=== PATIENT | female | born 1940 | race Caucasian/White ===

== ENCOUNTER 2019-02-08 12:59 | Inpatient (IN) ==
--- NOTE | 2019-02-08 13:08 | CT Scan Report ---
CT head/brain wo con CLINICAL HISTORY: STROKE ALERT STROKE LIKE SYMPTOMS COMPARISON STUDY: No previous studies for comparison. TECHNIQUE: Axial CT of the brain is performed from the vertex to the skull base. IV contrast was not administered for this examination. A dose lowering technique was utilized adhering to the principles of ALARA. CT DOSE: 537.48 mGy.cm FINDINGS: No intra or extra-axial mass lesions are visualized. There is no CT evidence of acute cortical infarc tion. There is no evidence of midline shift. There is no acute hemorrhage. No calvarial fractures ar e visualized. There is minimal ventricular prominence, finding which is felt to be secondary to volume loss. There is no evidence of pathologic ventricular dilatation. There is no evidence of acute sinusitis IMPRESSION: No acute intracranial findings Electronically signed by: Trae Guthrie M.D. 02/08/2019 1:07 PM
[2019-02-08 13:30] LABS: Basophils # (auto) 0.03 K/uL (0-0.2); Basophils % (auto) 0.4 %; Eosinophils # (auto) 0.22 K/uL (0-0.5); Hematocrit (blood only) 39.6 % (37-47); Hemoglobin 14.5 g/dL (12.0-16.0); Immature Granulocytes # (auto) 0.02 K/uL (0.00-0.02); Immature Granulocytes % (auto) 0.3 %; Lymphocytes # (auto) 2.77 K/uL (1.2-3.4); Lymphocytes % (auto) 38.3 %; Mean Corpuscular Hgb Conc 36.6 g/dL (32-36); Mean Corpuscular Volume 85.9 fL (80-100); Mean Platelet Volume 9.8 fL (7.4-10.4); Monocytes # (auto) 0.63 K/uL (0.11-0.59); Monocytes % (auto) 8.7 %; Neutrophils # (auto) 3.57 K/uL (1.4-6.5); Neutrophils % (auto) 49.3 %; Platelet Count 230 K/uL (130-400); RDW Coefficient of Variation 12.6 % (11.5-14.5); RDW Standard Deviation 39.9 fL (36.4-46.3); Red Blood Count 4.61 M/uL (4.2-5.4); White Blood Count 7.24 K/uL (4.8-10.8)
[2019-02-08 13:38] LABS: Partial Thromboplastin Ratio 0.9; Partial Thromboplastin Time 25.1 Seconds (21.0-31.0); Prothrombin Time 10.3 Seconds (9.0-12.0)
[2019-02-08 13:42] LABS: Alanine Aminotransferase 23 U/L (12-78); Albumin Level 4.4 gm/dl (3.4-5.0); BUN Creatinine Ratio 20.2 (10-20); Blood Urea Nitrogen 36 mg/dl (7-18); Calcium 10.3 mg/dl (8.5-10.1); Carbon Dioxide 28 mmol/L (21-32); Chloride 98 mmol/L (98-107); Est GFR (African American) 31.1; Est GFR (Non-African American) 26.8; Glucose 89 mg/dl (70-99); Magnesium 2.1 mg/dl (1.8-2.4); Potassium 4.7 mmol/L (3.5-5.1); Sodium 134 mmol/L (136-145)
[2019-02-08 13:53] LABS: Alkaline Phosphatase 64 U/L (45-117); Aspartate Aminotransferase 17 U/L (15-37); Bilirubin,Total 0.6 mg/dl (0.2-1); Globulin 4.3 gm/dl (2.5-4.0); Total Protein 8.7 gm/dl (6.4-8.2); Troponin I < 0.015 ng/ml (0-0.045)
[2019-02-08] MEDS ORDERED: ASPIRIN CHEW 324 MG PO STA (14:02)
--- NOTE | 2019-02-08 14:06 | XRay Report ---
XR chest 1V portable CLINICAL HISTORY: 79 years-old Female presenting with aphasia. TECHNIQUE: Portable upright AP view of the chest was obtained. COMPARISON: None. FINDINGS: Atherosclerosis of the aortic arch. Cardiac silhouette normal in size. Postsurgical changes in the pe riphery of the right upper lung. Mildly coarsened lung markings may indicate interstitial thickening. Right paramediastinal basilar opacity. No other focal opacity. No large effusion or pneumothorax. De generative changes of the thoracic spine. Cortical compression plate and screw fixation of the right clavicle. Upper abdomen normal. IMPRESSION: 1. Right paramediastinal opacity may relate to overlapping vascular shadows, underlying fat pad or a telectasis. No other evidence to suggest acute cardiopulmonary disease. Electronically signed by: Mukul Benoit M.D. 02/08/2019 2:05 PM
[2019-02-08] MEDS ORDERED: NICARDIPINE IV SCH (14:15)
[2019-02-08] MEDS ORDERED: DEXTROSE 5% IV SCH (14:15)
[2019-02-08] MEDS ORDERED: ONDANSETRON INJ 2 MG/ML 2 ML VIAL ONE (14:18)
[2019-02-08] MEDS ORDERED: ONDANSETRON INJ 2 MG/ML 2 ML VIAL IV STA (14:23)
--- NOTE | 2019-02-08 14:32 | Emergency Department Note ---
Entered by Alicia Arevalo acting as a scribe for Emory Blanc M.D. History of Present Illness General Chief complaint: Stroke Alert Source: patient Mode of arrival: ambulatory Limitations: no limitations History of Present Illness Onset (ago): hour(s) (1215) Location: head (stroke alert) Pain Consistency: + other (episode) Quality: + other (stroke alert) Associated symptoms: + other (The patient complains of garbled speech and thigh pain. ) The patient is an 79 year old female who presents to the ED via EMS with compl aints of an episode of a stroke alert that onset at 1215. The patient presents with her . Per nursing staff, the patient was driving with her toward the [employer] [place] when she developed garbled speech. The patient complains of thigh pain. Home Medications Home Medications Medication Instructions Recorded Confirmed Type calcium carbonate [Calcium 600] 1,200 mg PO DAILY 02/08/19 02/08/19 History gabapentin 300 mg PO QPM 02/08/19 02/08/19 History gabapentin 600 mg PO QAM 02/08/19 02/08/19 History levothyroxine [Synthroid] 112 mcg PO QAM 02/08/19 02/08/19 History magnesium 250 mg PO DAILY 02/08/19 02/08/19 History propranolol 80 mg PO DAILY 02/08/19 02/08/19 History Allergies Allergy/AdvReac Type Severity Reaction Status Date / Time codeine Allergy Unknown Verified 02/08/19 15:33 ezetimibe [From Vytorin] Allergy Unknown Verified 02/08/19 15:33 simvastatin [From Vytorin] Allergy Unknown Verified 02/08/19 15:33 aspirin AdvReac Unknown stomach Verified 02/08/19 15:33 ulcer NSAIDS (Non-Steroidal AdvReac Ulcers Unverified 02/08/19 14:10 Anti-Inflamma Penicillins AdvReac Unknown Unverified 02/08/19 14:10 Past Med/Surg History Medical History CKD (chronic kidney disease), stage IV (Chronic) Hypothyroidism (Chronic) History of hysterectomy (Chronic) HLD (hyperlipidemia) (Chronic) HTN (hypertension) (Chronic) No pertinent family history Surgical History History of cataract surgery (Chronic) History of orthopedic surgery (Chronic) clavicle fracture and surgical repair History of partial nephrectomy (Chronic) History of thyroidectomy (Chronic) Hx of tonsillectomy (Chronic) History of cholecystectomy (Chronic) History of appendectomy (Chronic) Family History Other No pertinent family history Social History Preferred Language: Wolof Communication Ability: Effective Visual Impairment: No Limitations Hearing Ability: Normal Feels Safe at Home: Yes Smoking Status: Never smoker Hx Alcohol Use: No Hx Substance Use: No Review of Systems See HPI for pertinent positives & negatives. and A total of 10 systems reviewed and were otherwise negative Physical Exam Vital Signs Vital Signs - 24 hr 02/08/19 13:09 02/08/19 13:19 02/08/19 13:24 Temperature 36.6 C Temperature Source Oral Sepsis Recent Fever Within 48 Hours No Sepsis New/Unexplained Change in Mental Status No Sepsis Action Taken by Nursing No Action Required Pulse Rate 62 Pulse Rate [Apical] 60 Pulse Rate from SpO2 Sensor Respiratory Rate 20 16 Blood Pressure 245/125 H Blood Pressure [Left Arm] 229/134 H Blood Pressure Mean 165 Blood Pressure Mean [Left Arm] 165 Pulse Oximetry 97 96 98 Oxygen Delivery Method Room Air Room Air Room Air 02/08/19 13:31 02/08/19 13:47 02/08/19 14:16 Temperature Temperature Source Sepsis Recent Fever Within 48 Hours Sepsis New/Unexplained Change in Mental Status Sepsis Action Taken by Nursing Pulse Rate 64 Pulse Rate [Apical] 55 L 60 Pulse Rate from SpO2 Sensor 63 Respiratory Rate 16 16 26 H Blood Pressure 217/122 H Blood Pressure [Left Arm] 215/117 H 222/134 H Blood Pressure Mean 153 Blood Pressure Mean [Left Arm] 149 163 Pulse Oximetry 96 94 96 Oxygen Delivery Method Room Air Room Air Room Air 02/08/19 14:31 02/08/19 14:34 02/08/19 14:46 Temperature Temperature Source Sepsis Recent Fever Within 48 Hours Sepsis New/Unexplained Change in Mental Status Sepsis Action Taken by Nursing Pulse Rate 73 69 77 Pulse Rate [Apical] Pulse Rate from SpO2 Sensor 74 71 77 Respiratory Rate 16 24 20 Blood Pressure 184/106 H 191/121 H 192/125 H Blood Pressure [Left Arm] Blood Pressure Mean 132 144 147 Blood Pressure Mean [Left Arm] Pulse Oximetry 96 95 100 Oxygen Delivery Method Room Air Room Air Room Air 02/08/19 15:01 02/08/19 15:15 02/08/19 15:30 Temperature Temperature Source Sepsis Recent Fever Within 48 Hours Sepsis New/Unexplained Change in Mental Status Sepsis Action Taken by Nursing Pulse Rate 75 68 65 Pulse Rate [Apical] Pulse Rate from SpO2 Sensor 74 69 66 Respiratory Rate 23 21 22 Blood Pressure 226/142 H 188/114 H 203/114 H Blood Pressure [Left Arm] Blood Pressure Mean 170 138 143 Blood Pressure Mean [Left Arm] Pulse Oximetry 93 96 94 Oxygen Delivery Method Room Air Room Air GENERAL: Awake, alert, well-appearing, in no distress HENT: Normocephalic, atraumatic. Oropharynx unremarkable. EYES: Normal conjunctiva. Sclera non-icteric. NECK: Supple. No nuchal rigidity. RESPIRATORY: Clear to auscultation. No wheezes. Normal respiratory effort. CARDIAC: Normal rate. Normal rhythm. Extremities warm and well perfused. GI: Soft, non-distended. No tenderness to palpation. No rebound or guarding. RECTAL: Deferred. MUSCULOSKELETAL: Atraumatic. Chest examination reveals no tenderness. LOWER EXTREMITIES: Calves are equal size bilaterally and non-tender. No edema NEURO: Normal sensorium. No sensory or motor deficits noted. No facial droop. No slurred speech, no aphasia, but slightly slower to answer at times. SKIN: Warm and dry. No rash or jaundice noted. Course 1259: Past medical records reviewed. The patient was evaluated in room B01. A complete history and physical examination was performed. 1338: I reviewed the patient's case with [facility] [place]. She states to give aspirin, no TPA, and monitor blood pressure. 1401: I reviewed the patient's case with Shelbi Tucker PA-C Hospitalist [facility]. She will evaluate the patient for further management. Consultations Consultation #1: [id number]: I reviewed the patient's case with [facility] [place]. She states to give aspirin, no TPA, and monitor blood pressure. Time: 13:38 Administered Medications Nicardipine HCl 25 mg/ (Dextrose) 250 mls @ 50 mls/hr IV .Q5H [facility]; Protocol Stop: 03/10/19 14:14 Last Titration: 02/08/19 14:38 Dose: 0 mg/hr, 0 mls/hr Documented by: [id number] Admin: 02/08/19 14:17 Dose: 2.5 mg/hr, 25 mls/hr Documented by: [id number] Cosigned by: [id number] Discontinued Medications Aspirin (Aspirin) 324 mg PO NOW STA Stop: 02/08/19 14:03 Last Admin: 02/08/19 14:18 Dose: 324 mg Documented by: [id number] Ondansetron HCl (Zofran) Confirm Administered Dose 4 mg .ROUTE .STK-MED ONE Stop: 02/08/19 14:19 Last Admin: 02/08/19 14:22 Dose: 4 mg Documented by: [id number] Ondansetron HCl (Zofran) 4 mg IV NOW STA Stop: 02/08/19 14:24 Last Admin: 02/08/19 14:24 Dose: Not Given Documented by: [id number] Medical Decision Making Differential Diagnosis Differential diagnoses: Metabolic, infection, hypoglycemia, electrolyte abnormalities, cardiac sources, intracerebral event, toxicologic, neurologic, as well as others were entertained. Medical Records Attestation: I reviewed the patient's medical records. Home Medications Current Medication List: was personally reviewed by me Laboratory Data Attestation: I reviewed the patient's lab results. Result diagrams: 02/08/19 13:08 02/08/19 13:08 Lab Results 02/08/19 02/08/19 02/08/19 Range/Units 13:08 13:08 13:08 WBC 7.24 (4.8-10.8) K/uL RBC 4.61 (4.2-5.4) M/uL Hgb 14.5 (12.0-16.0) g/dL Hct 39.6 (37-47) % MCV 85.9 (80-100) fL MCH 31.5 (25-34) pg MCHC 36.6 H (32-36) g/dL RDW Std Deviation 39.9 (36.4-46.3) fL RDW Coeff of [place] 12.6 (11.5-14.5) % Plt Count 230 (130-400) K/uL MPV 9.8 (7.4-10.4) fL Immature Gran % (Auto) 0.3 % Neut % (Auto) 49.3 % Lymph % (Auto) 38.3 % [place] % (Auto) 8.7 % Eos % (Auto) 3.0 % Baso % (Auto) 0.4 % Immature Gran # (Auto) 0.02 (0.00-0.02) K/uL Neut # (Auto) 3.57 (1.4-6.5) K/uL Lymph # (Auto) 2.77 (1.2-3.4) K/uL [place] # (Auto) 0.63 H (0.11-0.59) K/uL Eos # (Auto) 0.22 (0-0.5) K/uL Baso # (Auto) 0.03 (0-0.2) K/uL PT 10.3 (9.0-12.0) Seconds INR 1.0 (0.9-1.1) APTT 25.1 (21.0-31.0) Seconds PTT Ratio 0.9 Sodium 134 L (136-145) mmol/L Potassium 4.7 (3.5-5.1) mmol/L Chloride 98 (98-107) mmol/L Carbon Dioxide 28 (21-32) mmol/L Anion Gap 8.0 (3-11) BUN 36 H (7-18) mg/dl Creatinine 1.76 H (0.6-1.2) mg/dl Est Cr Clr Drug Dosing 21.0 ml/min Est GFR ( Amer) 31.1 Est GFR (Non-Af Amer) 26.8 BUN/Creatinine Ratio 20.2 H (10-20) Glucose 89 (70-99) mg/dl Calcium 10.3 H (8.5-10.1) mg/dl Magnesium 2.1 (1.8-2.4) mg/dl Total Bilirubin 0.6 (0.2-1) mg/dl AST 17 (15-37) U/L ALT 23 (12-78) U/L Alkaline Phosphatase 64 (45-117) U/L Troponin I < 0.015 (0-0.045) ng/ml Total Protein 8.7 H (6.4-8.2) gm/dl Albumin 4.4 (3.4-5.0) gm/dl Globulin 4.3 H (2.5-4.0) gm/dl Albumin/Globulin Ratio 1.0 (0.9-2) TSH 2.090 (0.300-4.500) uIu/ml Blood Type Antibody Screen 02/08/19 Range/Units 13:08 WBC (4.8-10.8) K/uL RBC (4.2-5.4) M/uL Hgb (12.0-16.0) g/dL Hct (37-47) % MCV (80-100) fL MCH (25-34) pg MCHC (32-36) g/dL RDW Std Deviation (36.4-46.3) fL RDW Coeff of [place]coe (11.5-14.5) % Plt Count (130-400) K/uL MPV (7.4-10.4) fL Immature Gran % (Auto) % Neut % (Auto) % Lymph % (Auto) % [place] % (Auto) % Eos % (Auto) % Baso % (Auto) % Immature Gran # (Auto) (0.00-0.02) K/uL Neut # (Auto) (1.4-6.5) K/uL Lymph # (Auto) (1.2-3.4) K/uL [place] # (Auto) (0.11-0.59) K/uL Eos # (Auto) (0-0.5) K/uL Baso # (Auto) (0-0.2) K/uL PT (9.0-12.0) Seconds INR (0.9-1.1) APTT (21.0-31.0) Seconds PTT Ratio Sodium (136-145) mmol/L Potassium (3.5-5.1) mmol/L Chloride (98-107) mmol/L Carbon Dioxide (21-32) mmol/L Anion Gap (3-11) BUN (7-18) mg/dl Creatinine (0.6-1.2) mg/dl Est Cr Clr Drug Dosing ml/min Est GFR ( Amer) Est GFR (Non-Af Amer) BUN/Creatinine Ratio (10-20) Glucose (70-99) mg/dl Calcium (8.5-10.1) mg/dl Magnesium (1.8-2.4) mg/dl Total Bilirubin (0.2-1) mg/dl AST (15-37) U/L ALT (12-78) U/L Alkaline Phosphatase (45-117) U/L Troponin I (0-0.045) ng/ml Total Protein (6.4-8.2) gm/dl Albumin (3.4-5.0) gm/dl Globulin (2.5-4.0) gm/dl Albumin/Globulin Ratio (0.9-2) TSH (0.300-4.500) uIu/ml Blood Type A Positive Antibody Screen NEGATIVE Imaging Data Radiologist's Impression: Radiology results as stated below per my review and the radiologist's interpretation: CT head/brain wo con CLINICAL HISTORY: STROKE ALERT STROKE LIKE SYMPTOMS COMPARISON STUDY: No previous studies for comparison. TECHNIQUE: Axial CT of the brain is performed from the vertex to the skull base. IV contrast was not administered for this examination. A dose lowering technique was utilized adhering to the principles of ALARA. CT DOSE: 537.48 mGy.cm FINDINGS: No intra or extra-axial mass lesions are visualized. There is no CT evidence of acute cortical infarction. There is no evidence of midline shift. There is no acute hemorrhage. No calvarial fractures are visualized. There is minimal ventricular prominence, finding which is felt to be secondary to volume loss. There is no evidence of pathologic ventricular dilatation. There is no evidence of acute sinusitis IMPRESSION: No acute intracranial findings Electronically signed by: Trae Guthrie M.D. 02/08/2019 1:07 PM Dictated: 02/08/19 1306 Transcribed: 02/08/19 1306 XR chest 1V portable CLINICAL HISTORY: 79 years-old Female presenting with aphasia. TECHNIQUE: Portable upright AP view of the chest was obtained. COMPARISON: None. FINDINGS: Atherosclerosis of the aortic arch. Cardiac silhouette normal in size. Postsurgical changes in the periphery of the right upper lung. Mildly coarsened lung markings may indicate interstitial thickening. Right paramediastinal basilar opacity. No other focal opacity. No large effusion or pneumothorax. Degenerative changes of the thoracic spine. Cortical compression plate and screw fixation of the right clavicle. Upper abdomen normal. IMPRESSION: 1. Right paramediastinal opacity may relate to overlapping vascular shadows, underlying fat pad or atelectasis. No other evidence to suggest acute cardiopulmonary disease. Electronically signed by: Mukul Benoit M.D. 02/08/2019 2:05 PM Dictated: 02/08/19 1403 Transcribed: 02/08/19 1403 ECG Data Attestation: I personally reviewed and interpreted this ECG as follows: Indication: other (stroke alert) Rate (beats per minute): 62 Rhythm: normal sinus Findings: + other (normal intervals ); no PVC, no ST depression and no ST elevation Blood Pressure Blood Pressure Findings: Elevated blood pressure Blood Pressure Disposition: further management by hospitalist DINORA Narrative Patient is an 79-year-old female with a history of hypertension and hypothyroidism presenting today from out of town. Driving to the area and had onset sometime between noon and 1215p of aphasia speaking garbled words along with a questionable facial droop. Brought here quickly as a stroke alert by EMS. CT head is unremarkable. Symptoms have improved upon arrival. No other motor or sensory deficits noted. No facial droop appreciated here. Patient's occasionally slightly slow to answer but denies any real aphasia. Is alert and oriented. Later complained of a bit of a headache and some nausea. Tele-stroke was completed recommended against TPA and I agree with this given her clinical improvement and minimal symptoms at this time. Given aspirin 1 dose. Started nicardipine for blood pressure control as this could be hypertensive emergency. SBP here 244 at one point. Goal around 200 SBP today. Patient to be admitted for further evaluation of hypertension and symptoms. Stroke recommending MR to exclude occult small stroke. Patient and in agreement. Adela contacted for next up admission. Impression & Plan Hypertensive emergency, Aphasia Critical Care Time I have personally spent 35 minutes of critical care time in the direct management of this patient. This includes bedside care, interpretation of d iagnostic studies, and testing, discussion with consultants, patient, and family members, and other required patient management activities. This 35 minutes is in excess of all separately billable procedures. Critical Care Time: Yes (35) Total Critical Care Time: 35 Discharge Plan Visit Data Chief Complaint: Stroke Alert ED Provider: Emory Blanc Discharge Problem: Hypertensive emergency, Aphasia Patient Disposition: Being Evaluated by Hospitalist Forms Stand Alone Forms: My [facility] [employer] Prescriptions Prescriptions: No Action gabapentin 300 mg Capsule 600 mg PO QAM RF: 0 gabapentin 300 mg Capsule 300 mg PO QPM RF: 0 levothyroxine [Synthroid] 112 mcg Tablet 112 mcg PO QAM RF: 0 calcium carbonate [Calcium 600] 600 mg calcium (1,500 mg) Tablet 1,200 mg PO DAILY RF: 0 magnesium 250 mg Tablet 250 mg PO DAILY RF: 0 propranolol 80 mg capsule,extended release 24 hr 80 mg PO DAILY RF: 0 Referrals Referrals: Renard Jacobsen MD [Primary Care Provider] - The scribe's documentation has been prepared under my direction and personally reviewed by me in its entirety. I confirm that the note above accurately reflects all work, treatment, procedures, and medical decision making performed by me.
--- NOTE | 2019-02-08 15:16 | History & Physical Report ---
Date of Service February 08, 2019 Assessment & Plan (1) Aphasia: (2) Headache: (3) Hypertensive emergency: Pt presented to ER with onset of aphasia, slurred speech, R arm tingling and weakness and BANKS that started at 12:15PM today. Upon ER arrival symptoms were improving and while in ER had resolution of R arm tingling/weakness and aphasia. BANKS has decreased. Tele stroke contacted and no TPA was recommended. Per ER physician recommended aspirin and keeping SBP 200. In ER pt was given aspirin, nicardipine drip started and was discontinued when BP 191/121. CT HEAD: No acute intracranial findings DDX: TIA/Stroke, hypertensive emergency -Tele to monitor for arrhythmias -EKG in am -trend troponin -lipid panel, HA1C, CBC, BMP in am -MRI brain -U/S carotids -echo with bubble study -aspiration precautions -PT/OT consult -ASA -pt was unsure of her vytorin allergy, will try to further clarify -allow permissive HTN, labetaolol SBP>200 in 1st 24 hrs -neurology consult (4) HTN (hypertension): -allow permissive HTN as above -continue home inderal (5) CKD (chronic kidney disease), stage IV: H/O partial nephrectomy per pt, reports was mass that was benign. Cr:1.76. PCP records from 04/2018 with BUN:30, Cr: 2.02, GFR: 23 -monitor renal functions -avoid nephrotoxic agents when possible (6) Hypothyroidism: H/O thyroidectomy secondary to benign nodule per pt TSH: 2.0 -continue levothyroxine DVT Prophylaxis -Heparin SQ Full Code as per discussion with pt and pt's Follows with Dr Renard Jacobsen in [facility] [place] for routine care Pt was seen with Dr Boswell. See addendum History of Present Illness Chief Complaint: aphasia Primary Care Provider: Renard Jacobsen MD Pt is 79 y/o F with PMH HTN, HLD, CKD IV, partial nephrectomy, thyroid nodule s/p thyroidectomy presented to ER with c/o aphasia. Patient reports felt her normal self this morning and ate breakfast. They were traveling to [place] for events located at [employer]. Upon traveling patient states started with some nausea however did not have any vomiting. At approximately 12:15 PM patient started with aphasia, garbled speech with associated right arm tingling and had difficulty gripping a pen. Also had associated frontal headache. Reports at symptom onset she took 1 aspirin sublingual. Symptoms lasted approximately 30 minutes and were improving upon ER arrival. In ER patient was noted with slow responses however no slurred speech resolution of right arm tingling and weakness. Patient has continued headache but reports headache is decreasing and rates a 5 out of 10 on pain scale. and pt report that she has been having trouble remembering for 1-2 years and reports pt is currently at her baseline mental status. In ER patient with nausea and vomited x1. Patient reports the past week is been having stumbling gait. She reports tripping over a rug in her motor home yesterday falling and hitting her head on the sofa. Patient denies any loss of consciousness, dizziness, headache after the event. Denies any other injury from fall. Denies fever/chills, diaphoresis, D/C, dizziness, syncope, vision changes, neck pain, CP, SOB, orthopnea, palpitations, cough, sore throat, choking, otalgia, rhinorrhea, abdominal pain, extremity edema, rashes, urinary symptoms. In ER patient had telemetry stroke evaluation and no TPA was recommended. Aspirin was recommended and patient was given 324 mg p.o. Was recommended to monitor pt's BP. Patient with elevated blood pressures 245/125 and nicadrdipine drip was initiated at 5mg/hr and was later discontinued as BP down to 191/121. Was able to have PCP fax copy of latest labs from 04/28/2018 : BUN: 30, Cr: 2.02, GFR: 23, H/H: 13.5/38.7 PCP also faxed pt med list and verified home medications with pt. Allergies Allergy/AdvReac Type Severity Reaction Status Date / Time codeine Allergy Unknown Verified 02/08/19 15:33 ezetimibe [From Vytorin] Allergy Unknown Verified 02/08/19 15:33 simvastatin [From Vytorin] Allergy Unknown Verified 02/08/19 15:33 aspirin AdvReac Unknown stomach Verified 02/08/19 15:33 ulcer NSAIDS (Non-Steroidal AdvReac Ulcers Unverified 02/08/19 14:10 Anti-Inflamma Penicillins AdvReac Unknown Unverified 02/08/19 14:10 Home Medications Home Medications Medication Instructions Recorded Confirmed Type calcium carbonate [Calcium 600] 1,200 mg PO DAILY 02/08/19 02/08/19 History gabapentin 300 mg PO QPM 02/08/19 02/08/19 History gabapentin 600 mg PO QAM 02/08/19 02/08/19 History levothyroxine [Synthroid] 112 mcg PO QAM 02/08/19 02/08/19 History magnesium 250 mg PO DAILY 02/08/19 02/08/19 History propranolol 80 mg PO DAILY 02/08/19 02/08/19 History Past Med/Surg History Medical History CKD (chronic kidney disease), stage IV (Chronic) Hypothyroidism (Chronic) History of hysterectomy (Chronic) HLD (hyperlipidemia) (Chronic) HTN (hypertension) (Chronic) No pertinent family history Surgical History History of cataract surgery (Chronic) History of orthopedic surgery (Chronic) clavicle fracture and surgical repair History of partial nephrectomy (Chronic) History of thyroidectomy (Chronic) Hx of tonsillectomy (Chronic) History of cholecystectomy (Chronic) History of appendectomy (Chronic) Family History Father Stroke Diabetes Mother Stroke Diabetes Social History Preferred Language: Greek Communication Ability: Effective Visual Impairment: No Limitations Hearing Ability: Normal Current Living Situation: Spouse Feels Safe at Home: Yes Safety Concerns: Feels Safe At This Time Smoking Status: Never smoker Hx Alcohol Use: Yes Alcohol type: wine Hx Substance Use: No Review of Systems Review of Systems: All systems reviewed & are unremarkable except as noted in HPI & below Physical Exam Physical Exam: General: no acute distress, WDWN Head: normocephalic, atraumatic Eyes: PERRL, Difficult to fully assess EOM's as pt will not follow providers finger however is able to gaze left and right and up and down, conjunctiva non- injected, anicteric ENT: normal inspection external ears, nose, mucous membranes mildly dry Neck: supple, trachea midline, non-tender, ROM intact Lungs: clear, no respiratory distress, no wheezing/rhonchi/rales CV: RRR, no murmur, no pretibial edema Abd: normal BS, soft, non-tender Ext: no cyanosis, no calf tenderness Neuro: A&O to person, place, knows month, day, reports year is 1919, symmetric eyebrow raise, tongue midline, no facial droop, bilateral arm and leg strength 4/5, no pronator drift, normal affect Skin: warm, dry Results & Data Vital Signs (Past 12 Hours) Vital Signs Temp Pulse Pulse Resp BP BP Pulse Ox 02/08/19 14:46 77 20 192/125 H 100 02/08/19 14:34 69 24 191/121 H 95 02/08/19 14:31 73 16 184/106 H 96 02/08/19 14:16 64 26 H 217/122 H 96 02/08/19 13:47 60 16 222/134 H 94 02/08/19 13:31 55 L 16 215/117 H 96 02/08/19 13:24 60 16 229/134 H 98 02/08/19 13:19 96 02/08/19 13:09 36.6 C 62 20 245/125 H 97 Laboratory Results Short CBC 02/08/19 Range/Units 13:08 WBC 7.24 (4.8-10.8) K/uL Hgb 14.5 (12.0-16.0) g/dL Hct 39.6 (37-47) % Plt Count 230 (130-400) K/uL BMP 02/08/19 13:08 Sodium 134 L Potassium 4.7 Chloride 98 Carbon Dioxide 28 BUN 36 H Creatinine 1.76 H Glucose 89 Calcium 10.3 H Cardiac Enzymes 02/08/19 Range/Units 13:08 Troponin I < 0.015 (0-0.045) ng/ml Liver Function 02/08/19 Range/Units 13:08 Total Bilirubin 0.6 (0.2-1) mg/dl AST 17 (15-37) U/L ALT 23 (12-78) U/L Alkaline Phosphatase 64 (45-117) U/L Albumin 4.4 (3.4-5.0) gm/dl Diagnostic Findings CT HEAD: IMPRESSION: No acute intracranial findings CXR: IMPRESSION: 1. Right paramediastinal opacity may relate to overlapping vascular shadows, underlying fat pad or atelectasis. No other evidence to suggest acute cardiopulmonary disease. ECG Rate (beats per minute): 62 Rhythm: normal sinus Findings: + Q waves (Inferior, anterior) Supervising Physician Co-Signing Physician Notes Care coordinated with Shelbi Tucker PA-C. Agree with above note. Patient seen and examined. Please refer to her notes for full details. Vital signs reviewed. Physical exam: General exam: Alert and oriented. Not in acute distress. CVS: S1 and S2 heard, regular rate and rhythm, no murmurs. RS: Clear to auscultation, no wheezing or crackles. ABD: Soft, bowel sounds present, nontender, no distention. SENIOR ECONOMIST: Nonfocal. EXT: No edema, no erythema. Labs: Reviewed. Assessment and plan: 79F presents with episode of aphasia and tingling sensation and weakness in right upper extremity around noon time that lasted half hour. CT head unremarkable. BP very high on presentation. TPA was not given as symptoms improved. Stroke like symptoms with aphasia and right upper extremity weakness improved ct head negative admit to tele mri/mra head, echo, carotid doppler neurology consult in am Hypertension uncontrolled BP 245/125 on presentation intially started on nicardipine drip. stopped after BP dropped Recommended to keep sbp around 200. seems recently lisinopril and cardizem was stopped and was started on propronolol will place on iv labetolol prn continue home propronolol monitor BP closely. Other diagnosis and plan of care as per Shelbi Tucker PA-C. Betito raymond MD.
[2019-02-08] MEDS ORDERED: ACETAMINOPHEN 1,000 MG/100 ML VIAL IV STA (16:14)
[2019-02-08] MEDS ORDERED: ACETAMINOPHEN 325 MG TAB PO PRN (16:41)
[2019-02-08] MEDS ORDERED: PHARMACIST DISCHARGE MED REC CONSULT PRN (16:41)
[2019-02-08] MEDS ORDERED: ONDANSETRON INJ 2 MG/ML 2 ML VIAL IV PRN (16:41)
[2019-02-08] MEDS ORDERED: LABETALOL HCL IV 5 MG/ML 20ML IV PRN (16:41)
[2019-02-08] MEDS: HEPARIN SOD 5,000 UNIT/0.5 ML VIAL SQ SCH (20:01)
[2019-02-08] MEDS ORDERED: GABAPENTIN 300 MG CAP PO SCH (21:00)
--- NOTE | 2019-02-08 21:53 | Magnetic Resonance Report ---
MR brain wo con HISTORY: Mental status change stroke symptoms TECHNIQUE: Multiplanar multisequence MRI of the brain was performed without the use of contrast. COMPARISON STUDY: None. FINDINGS: There are no areas of restricted diffusion to suggest acute infarction. The midline structu res are intact. The paranasal sinuses are clear. The mastoid air cells are clear. The ventricles and sulci are within normal limits for age. There is no mass, hematoma, midline shift. The major vascular flow-voids at the skull base are well maintained. Considerable age-related chronic small vessel roberts ge in the periventricular and deep white matter regions. IMPRESSION: 1. No evidence for an acute ischemic process. 2. Considerable chronic small vessel change. 3. Age-related atrophy The above report was generated using voice recognition software. It may contain grammatical, syntax or spelling errors. Electronically signed by: Vivek Alicia M.D. 02/08/2019 9:52 PM
--- NOTE | 2019-02-08 22:19 | Ultrasound Report ---
US carotid doppler BI HISTORY: Mental status change stroke symptoms COMPARISON: None. TECHNIQUE: Real-time, grayscale, and color Doppler sonography of the carotid arteries was performed. Imaging reviewed in the transverse and longitudinal planes. All measurements were calculated based on NASCET criteria. FINDINGS: Antegrade flow is seen in the bilateral vertebral arteries. The brachial pressures are hemodynamically similar. Mild plaque formation bilaterally The peak systolic velocity within the right ICA is 61. The right systolic ratio is 1.6. The peak systolic velocity within the left ICA is 85. The left systolic ratio is 1.1. IMPRESSION: No hemodynamically significant stenosis seen within the carotid arteries. Minimal/mild plaque formati on bilaterally The above report was generated using voice recognition software. It may contain grammatical, syntax or spelling errors. Electronically signed by: Vivek Alicia M.D. 02/08/2019 10:18 PM
[2019-02-09 06:22] LABS: Basophils # (auto) 0.02 K/uL (0-0.2); Basophils % (auto) 0.3 %; Eosinophils # (auto) 0.11 K/uL (0-0.5); Eosinophils % (auto) 1.7 %; Immature Granulocytes # (auto) 0.02 K/uL (0.00-0.02); Immature Granulocytes % (auto) 0.3 %; Lymphocytes # (auto) 2.23 K/uL (1.2-3.4); Lymphocytes % (auto) 33.9 %; Mean Corpuscular Hgb Conc 35.1 g/dL (32-36); Mean Corpuscular Volume 87.1 fL (80-100); Mean Platelet Volume 9.9 fL (7.4-10.4); Monocytes # (auto) 0.73 K/uL (0.11-0.59); Monocytes % (auto) 11.1 %; Neutrophils # (auto) 3.47 K/uL (1.4-6.5); Neutrophils % (auto) 52.7 %; Platelet Count 192 K/uL (130-400); RDW Coefficient of Variation 12.7 % (11.5-14.5); RDW Standard Deviation 40.6 fL (36.4-46.3); Red Blood Count 4.25 M/uL (4.2-5.4); White Blood Count 6.58 K/uL (4.8-10.8)
[2019-02-09] MEDS ORDERED: LEVOTHYROXINE SODIUM 112 MCG TABLET PO SCH (06:30)
[2019-02-09 06:57] LABS: BUN Creatinine Ratio 17.7 (10-20); Calcium 9.1 mg/dl (8.5-10.1); Creatinine Clr Calc Pharmacy 19.3 ml/min; Est GFR (African American) 28.7; Est GFR (Non-African American) 24.8; Potassium 3.9 mmol/L (3.5-5.1)
[2019-02-09 07:38] LABS: Estimated Average Glucose 120 mg/dl; Hemoglobin A1C 5.8 % (4.5-5.6)
[2019-02-09] MEDS: HEPARIN SOD 5,000 UNIT/0.5 ML VIAL SQ SCH (08:27)
[2019-02-09] MEDS ORDERED: MAGNESIUM OXIDE 400 MG TAB PO SCH (09:00)
[2019-02-09] MEDS ORDERED: GABAPENTIN 600 MG TAB PO SCH (09:00)
[2019-02-09] MEDS ORDERED: ASPIRIN 81 MG ECTAB PO SCH (09:00)
[2019-02-09] MEDS ORDERED: PROPRANOLOL HCL LA 80 MG CAPCR PO SCH (09:00)
--- NOTE | 2019-02-09 11:38 | Neurology Consultation ---
Date of Consultation February 09, 2019 Assessment & Plan (1) Aphasia: 1. MRI brain - no evidence of stroke 2. TTE no ASD 3. carotid doppler- no significant stenosis 4. aspirin 81 mg - previous bleed from stomach ulcer 5. plavix 75 mg would start and continue for a lifetime- less ulcerogenic 6. optimize HTN, HLD, LDL <70 7 will need to follow up with PCP in [place] for further management ZIO as outpatient 8. fall precautions Supervising Physician Co-Signing Physician Notes I have seen and discussed above patient with Dr Radha Peña, neurology Pt seen and examined, 1 hour or less of exp aphasia with r paresthesias and hemiparesis, followed by BANKS. No hx of migraine. MRI, no acute infarct, carotid no significant stenosis. P risk mod, Plavix, due hx of PUD with asa in past, statin. Will need zio as outpt. As pt does not live in this area will need to be ordered by primary. JOEL Peña MD History of Present Illness Reason for Consultation: Aphasia Requesting Physician: Tristan Ruff MD Attending Physician: Tristan Ruff MD History of Present Illness Tita is a 79 year old female with PMH HTN, HLD, CKD IV, partial nephrectomy, thyroid nodule s/p thyroidectomy presented to ER with c/o aphasia. They were traveling to [place] from [facility] for events located at [employer]. She started having some aphasia, garbled speech with associated right arm tingling and had difficulty gripping a pen. She was having trouble telling her she wanted him to stop and get her an aspirin which she took sublingual. The symptoms lasted about 30 minutes and were improving upon ER arrival. She also complained of a headache but reports headache is decreasing and rates a 5 out of 10 on pain scale. states she has been having trouble remembering for 1-2 years and at her baseline mental status. She had some nausea and vomited x 1 in the ED. She tripped over a rug in her motor home the day before she came to the ED. She fell and hit her head on the sofa. A telemetry stroke evaluation was ordered and no TPA was recommended. She was given 324 mg and her elevated blood pressures 245/125 was treated with nicadrdipine drip was initiated at 5mg/hr and was later discontinued as BP down to 191/121. denies CP, SOB, abdominal pain, one sided weakness, numbness tingling, vision changes, swallowing issues, current banks, bowel or bladder issues, N, V. Allergies Allergy/AdvReac Type Severity Reaction Status Date / Time codeine Allergy Unknown Verified 02/08/19 15:33 ezetimibe [From Vytorin] Allergy Unknown Verified 02/08/19 15:33 simvastatin [From Vytorin] Allergy Unknown Verified 02/08/19 15:33 aspirin AdvReac Unknown stomach Verified 02/08/19 15:33 ulcer NSAIDS (Non-Steroidal AdvReac Ulcers Unverified 02/08/19 14:10 Anti-Inflamma Penicillins AdvReac Unknown Unverified 02/08/19 14:10 Home Medications Home Medications Medication Instructions Recorded Confirmed Type calcium carbonate [Calcium 600] 1,200 mg PO DAILY 02/08/19 02/08/19 History gabapentin 300 mg PO QPM 02/08/19 02/08/19 History gabapentin 600 mg PO QAM 02/08/19 02/08/19 History levothyroxine [Synthroid] 112 mcg PO QAM 02/08/19 02/08/19 History magnesium 250 mg PO DAILY 02/08/19 02/08/19 History propranolol 80 mg PO DAILY 02/08/19 02/08/19 History amlodipine [Norvasc] 2.5 mg PO QAM #30 tab 02/09/19 Rx atorvastatin 40 mg PO DAILY #30 tab 02/09/19 Rx clopidogrel 75 mg PO DAILY #30 tab 02/09/19 Rx Patient History Medical History CKD (chronic kidney disease), stage IV (Chronic) Hypothyroidism (Chronic) History of hysterectomy (Chronic) HLD (hyperlipidemia) (Chronic) HTN (hypertension) (Chronic) No pertinent family history Surgical History History of cataract surgery (Chronic) History of orthopedic surgery (Chronic) clavicle fracture and surgical repair History of partial nephrectomy (Chronic) History of thyroidectomy (Chronic) Hx of tonsillectomy (Chronic) History of cholecystectomy (Chronic) History of appendectomy (Chronic) Family History Father Stroke Diabetes Mother Stroke Diabetes Social History Preferred Language: Danish Communication Ability: Effective Visual Impairment: No Limitations Hearing Ability: Normal Current Living Situation: Spouse Feels Safe at Home: Yes Safety Concerns: Feels Safe At This Time Smoking Status: Never smoker Hx Alcohol Use: Yes Alcohol type: wine Hx Substance Use: No Physical Exam Physical Exam: Physical Exam: Constitutional: appearance nourished, healthy and normal Ears, Nose, Mouth and Throat: mucous membranes moist, no injection and skin normal, eyes normal Cardiovascular: normal S-1 and S-2 and regular rate and rhythm Respiratory: clear to auscultation (CTA) and no rales, rhonchi or wheeze Musculoskeletal: no peripheral edema and good distal pulses Skin: no stigmata of neurocutaneous disease noted and normal and intact Eyes: extraocular muscles intact (EOMI) and pupils equal, round and reactive to light (PERRL) NEUROLOGIC EXAMINATION: Mental status: Alert and interactive Oriented hospital but didn't know the name, states in [place], 2018, January, able to stick out tongue, close eye point to ceiling with left hand Oriented to person Speech fluent with no evidence of aphasia Cranial Nerves smile eye brow raise symmetric, tongue mid line Reflexes: Deep tendon reflexes were symmetrical and graded 2/5. Plantar responses were flexor. Sensory: cool or light touch Coordination: finger to nose on bi pass birch to heel no dysmetry Gait/Stance: Posture normal. Gait normal: with steady with steps, base, turning,tandem gait. Motor: Negative for pronator drift of out stretched arms with eyes closed. Strength: biceps triceps deltoids hand shelf stocker bilaterally 5/5, hip flex plantar/patellar flex ext 5/5 bilaterally Results & Data Vital Signs (Past 12 Hours) Vital Signs Temp Pulse Resp BP BP Pulse Ox 02/09/19 10:58 36.4 C L 64 18 161/95 H 94 02/09/19 07:07 36.7 C 68 18 148/80 H 92 02/09/19 03:37 36.6 C 69 16 144/89 H 91 02/09/19 00:05 36.5 C 70 16 152/88 H 94 Laboratory Results Abnormal lab results 02/08/19 02/08/19 02/09/19 Range/Units 13:08 13:08 06:05 MCHC 36.6 H (32-36) g/dL Craven # (Auto) 0.63 H 0.73 H (0.11-0.59) K/uL Sodium 134 L (136-145) mmol/L Chloride (98-107) mmol/L BUN 36 H (7-18) mg/dl Creatinine 1.76 H (0.6-1.2) mg/dl BUN/Creatinine Ratio 20.2 H (10-20) Hemoglobin A1c (4.5-5.6) % Calcium 10.3 H (8.5-10.1) mg/dl Total Protein 8.7 H (6.4-8.2) gm/dl Globulin 4.3 H (2.5-4.0) gm/dl Triglycerides (0-150) mg/dl Cholesterol (0-200) mg/dl 02/09/19 02/09/19 Range/Units 06:05 06:05 MCHC (32-36) g/dL Craven # (Auto) (0.11-0.59) K/uL Sodium 132 L (136-145) mmol/L Chloride 97 L (98-107) mmol/L BUN 33 H (7-18) mg/dl Creatinine 1.88 H (0.6-1.2) mg/dl BUN/Creatinine Ratio (10-20) Hemoglobin A1c 5.8 H (4.5-5.6) % Calcium (8.5-10.1) mg/dl Total Protein (6.4-8.2) gm/dl Globulin (2.5-4.0) gm/dl Triglycerides 151 H (0-150) mg/dl Cholesterol 218 H (0-200) mg/dl Diagnostic Findings CT head-No acute intracranial findings CXR Right paramediastinal opacity may relate to overlapping vascular shadows, underlying fat pad or atelectasis. No other evidence to suggest acute cardiopulmonary disease. MRI brain-No evidence for an acute ischemic process. Considerable chronic small vessel change. Age-related atrophy carotid doppler-No hemodynamically significant stenosis seen within the carotid arteries. Minimal/mild plaque formation bilaterally TTE- EF >70%, no ASD
--- NOTE | 2019-02-09 12:33 | Hospitalist Progress Note ---
Date of Service February 09, 2019 Assessment & Plan (1) Stroke-like symptoms: (2) Aphasia: Present on admission with aphasia associated with right arm tingling and weakness Possible related to TIA vs Hypertensive emergency Stroke alert called, but no TPA administered since BP was elevated and her symptoms improved CT head showed no acute intracranial abnormality MRI of the head showed no evidence for an acute ischemic process. Carotid doppler showed no hemodynamically significant stenosis seen within the carotid arteries. ECHO done showed no wall motion abnormality. No interatrial shunt with EF greater than 70% Received Aspirin in the ER Neuro on board Continue aspirin 81 mgg Waiting for neurology input about plavix due to remote history of stomach ulcer LDL 140, HDL 48 and Total cholesterol 218 Case discussed with neurology recommended to start on plavix over aspirin due to higher risk of GI bleeding with aspirin Will discharge on statin (Pt said that she was not able to tolerate the simvastatin in the past due to muscle cramp) Follow up with PCP for further management ZIO monitor as outpatient PT/OT completed - stable Clinically improves (3) Hypertensive emergency: BP on admission 245/125 Was starting on cardene drip that was d/c last night since BP was improved too rapidly BP has been fluctuated today Continue propranolol 80mg daily Starting on low dose amlodipine 2.5 mg Allow permissive HTN Will need follow up with PCP to monitor BP (4) Headache: Possible related to hypertensive urgency CT and MRI of the head negative for acute finding Resolved (5) HTN (hypertension): Will allow permissive HTN as above continue home inderal and amlodipine 2.5 mg added Monitor BP at home (6) CKD (chronic kidney disease), stage IV: H/O partial nephrectomy per pt, reports was mass that was benign. PCP records from 04/2018 with BUN:30, Cr: 2.02, GFR: 23 Creatinine today 1.8 Avoid nephrotoxic agents Stable (7) Hypothyroidism: H/O thyroidectomy secondary to benign nodule per pt TSH stable Continue levothyroxine DVT Prophylaxis Heparin SQ CODE STATUS FULL CODE Disposition Follows with PCP Dr Renard Jacobsen in [facility] [place] Subjective Pt was seen and examined Sitting in chair with no distress with at bedside Pt said that she feels fine She said that she is back to her baseline also confirmed that she is herself Pt is anxious to discharge today to finish with the rally that they came to attend She denies any numbness, weakness, palpitation, dizziness and slurred speech Physical Exam Physical Exam: General- No acute distress Head- atraumatic Eyes- PERRL, EOMI, ENT- oropharynx clear Neck- supple, no JVD Lungs- clear to auscultation Heart- regular rhythm; no murmur Abdomen- normal bowel sounds, soft, nontender Extremities- no calf tenderness Neuro- alert, oriented x 3; PERRL, EOMI; no facial palsy; no dysarthria, normal strength Skin- warm & dry Results & Data Vital Signs (Past 12 Hours) Vital Signs Temp Pulse Resp BP BP Pulse Ox 02/09/19 10:58 36.4 C L 64 18 161/95 H 94 02/09/19 07:07 36.7 C 68 18 148/80 H 92 02/09/19 03:37 36.6 C 69 16 144/89 H 91
[2019-02-09] MEDS ORDERED: AMLODIPINE BESYLATE 5 MG TAB PO SCH (13:15)
[2019-02-09] MEDS ORDERED: STROKE PATIENT DISCHARGE STA (17:27)
--- NOTE | 2019-02-09 18:23 | Pharmacy Report ---
Pharmacist Stroke Counseling - Date of Service February 09, 2019 - Scope: Pharmacy has been consulted to provide medication discharge counseling for this patient admitted with transient ischemic attack as per the Pharmacist Discharge Counseling for Stroke Patients Protocol. - Medications on Discharge: Home Medications Medication Instructions Recorded Confirmed calcium carbonate [Calcium 600] 1,200 mg PO DAILY 02/08/19 02/08/19 gabapentin 300 mg PO QPM 02/08/19 02/08/19 gabapentin 600 mg PO QAM 02/08/19 02/08/19 levothyroxine [Synthroid] 112 mcg PO QAM 02/08/19 02/08/19 magnesium 250 mg PO DAILY 02/08/19 02/08/19 propranolol 80 mg PO DAILY 02/08/19 02/08/19 New Rx's Medication Instructions Recorded amlodipine [Norvasc] 2.5 mg PO QAM #30 tab 02/09/19 atorvastatin 40 mg PO DAILY #30 tab 02/09/19 clopidogrel 75 mg PO DAILY #30 tab 02/09/19 - Action: The above medications, specifically ones for stroke treatment/prophylaxis, have been reviewed in detail with the patient and/or patient community service representative(s) prior to discharge. This includes indication, common adverse reactions, drug interactions, and medication administration. Medication counseling has been employed using the teach-back method to ensure understanding. - Outcome: The patient and/or patient community service representative(s) have demonstrated understanding of the medications. Please note, they are aware that the pharmacist will call them within 72 hours post-discharge to confirm that the appropriate medications are being taken and answer any further medication related questions the patient might have at that time. Contact information Individual to be contacted: Surinder (or Tita herself) Relationship to patient (if applicable): Phone number: [phone] (Home phone) Best time to call: Anytime after Tuesday. Will be out of town until then. Are from [place] Additional comments: Patient still needs to make an appointment with her PCP Dr. Renard Jacobsen. Was on aspirin previously, but d/c'd due to bleed from stomach ulcer. Was also on Simvastatin, but this was stopped due to cramps Thank you for allowing pharmacy to be involved in the care of this patient. Please call [phone] or [phone] with any additional questions
--- NOTE | 2019-02-10 22:43 | Discharge Summary ---
Date of Service February 09, 2019 Admission HPI Per Admitting Provider Pt is 79 y/o F with PMH HTN, HLD, CKD IV, partial nephrectomy, thyroid nodule s/p thyroidectomy presented to ER with c/o aphasia. Patient reports felt her normal self this morning and ate breakfast. They were traveling to [place] [place] for events located at [employer]. Upon traveling patient states started with some nausea however did not have any vomiting. At approximately 12:15 PM patient started with aphasia, garbled speech with associated right arm tingling and had difficulty gripping a pen. Also had associated frontal headache. Reports at symptom onset she took 1 aspirin sublingual. Symptoms la sted approximately 30 minutes and were improving upon ER arrival. In ER patient was noted with slow responses however no slurred speech resolution of right arm tingling and weakness. Patient has continued headache but reports headache is decreasing and rates a 5 out of 10 on pain scale. and pt report that she has been having trouble remembering for 1-2 years and reports pt is cur rently at her baseline mental status. In ER patient with nausea and vomited x1. Patient reports the past week is been having stumbling gait. She reports tripping over a rug in her motor home yesterday falling and hitting her head on the sofa. Patient denies any loss of consciousness, dizziness, headache after the event. Denies any other injury from fall. Denies fever/chills, diaphoresis, D/C, dizziness, syncope, vision changes, neck pain, CP, SOB, orthopnea, palpitations, cough, sore throat, choking, otalgia, rhinorrhea, abdominal pain, extremity edema, rashes, urinary symptoms. In ER patient had telemetry stroke evaluation and no TPA was recommended. Aspirin was recommended and patient was given 324 mg p.o. Was recommended to monitor pt's BP. Patient with elevated blood pressures 245/125 and nicadrdipine drip was initiated at 5mg/hr and was later discontinued as BP down to 191/121. Was able to have PCP fax copy of latest labs from 04/28/2018 : BUN: 30, Cr: 2.02, GFR: 23, H/H: 13.5/38.7 PCP also faxed pt med list and verified home medications with pt. Admission Exam Per Admitting Provider General: no acute distress, WDWN Head: normocephalic, atraumatic Eyes: PERRL, Difficult to fully assess EOM's as pt will not follow providers finger however is able to gaze left and right and up and down, conjunctiva non- injected, anicteric ENT: normal inspection external ears, nose, mucous membranes mildly dry Neck: supple, trachea midline, non-tender, ROM intact Lungs: clear, no respiratory distress, no wheezing/rhonchi/rales CV: RRR, no murmur, no pretibial edema Abd: normal BS, soft, non-tender Ext: no cyanosis, no calf tenderness Neuro: A&O to person, place, knows month, day, reports year is 1919, symmetric eyebrow raise, tongue midline, no facial droop, bilateral arm and leg strength 4/5, no pronator drift, normal affect Skin: warm, dry Principal Diagnosis Stroke like Symptoms Hypertensive urgency Headache CKD stage 4 Hypothyroidism Discharge Exam General- No acute distress Head- atraumatic Eyes- PERRL, EOMI, ENT- oropharynx clear Neck- supple, no JVD Lungs- clear to auscultation Heart- regular rhythm; no murmur Abdomen- normal bowel sounds, soft, nontender Extremities- no calf tenderness Neuro- alert, oriented x 3; PERRL, EOMI; no facial palsy; no dysarthria, normal strength Skin- warm & dry Discharge Data Allergies Allergy/AdvReac Type Severity Reaction Status Date / Time codeine Allergy Unknown Verified 02/08/19 15:33 ezetimibe [From Vytorin] Allergy Unknown Verified 02/08/19 15:33 simvastatin [From Vytorin] Allergy Unknown Verified 02/08/19 15:33 aspirin AdvReac Unknown stomach Verified 02/08/19 15:33 ulcer NSAIDS (Non-Steroidal AdvReac Ulcers Unverified 02/08/19 14:10 Anti-Inflamma Penicillins AdvReac Unknown Unverified 02/08/19 14:10 Consultations 02/08/19 14:03 ED Decision to Admit Stat 02/08/19 16:41 Consult Case Management - Discharge Planning Routine Consult Case Management - Discharge Planning Routine Consult Neurology Routine Ordered Studies 02/08/19 12:55 CT head/brain wo con Stat 02/08/19 16:41 MR brain wo con Routine US carotid doppler BI Routine US carotid doppler BI HISTORY: Mental status change stroke symptoms COMPARISON: None. TECHNIQUE: Real-time, grayscale, and color Doppler sonography of the carotid arteries was performed. Imaging reviewed in the transverse and longitudinal planes. All measurements were calculated based on NASCET criteria. FINDINGS: Antegrade flow is seen in the bilateral vertebral arteries. The brachial pressures are hemodynamically similar. Mild plaque formation bilaterally The peak systolic velocity within the right ICA is 61. The right systolic ratio is 1.6. The peak systolic velocity within the left ICA is 85. The left systolic ratio is 1.1. IMPRESSION: No hemodynamically significant stenosis seen within the carotid arteries. Minimal/mild plaque formation bilaterally The above report was generated using voice recognition software. It may contain grammatical, syntax or spelling errors. Electronically signed by: Vivek Alicia M.D. 02/08/2019 10:18 PM Dictated: 02/08/192216 Transcribed: 02/08/192216 MR brain wo con HISTORY: Mental status change stroke symptoms TECHNIQUE: Multiplanar multisequence MRI of the brain was performed without the use of contrast. COMPARISON STUDY: None. FINDINGS: There are no areas of restricted diffusion to suggest acute infarction. The midline structures are intact. The paranasal sinuses are clear. The mastoid air cells are clear. The ventricles and sulci are within normal limits for age. There is no mass, hematoma, midline shift. The major vascular flow-voids at the skull base are well maintained. Considerable age-related chronic small vessel change in the periventricular and deep white matter regions. IMPRESSION: 1. No evidence for an acute ischemic process. 2. Considerable chronic small vessel change. 3. Age-related atrophy The above report was generated using voice recognition software. It may contain grammatical, syntax or spelling errors. Electronically signed by: Vivek Alicia M.D. 02/08/2019 9:52 PM Dictated: 02/08/192147 Transcribed: 02/08/192147 XR chest 1V portable CLINICAL HISTORY: 79 years-old Female presenting with aphasia. TECHNIQUE: Portable upright AP view of the chest was obtained. COMPARISON: None. FINDINGS: Atherosclerosis of the aortic arch. Cardiac silhouette normal in size. Postsurgical changes in the periphery of the right upper lung. Mildly coarsened lung markings may indicate interstitial thickening. Right paramediastinal basilar opacity. No other focal opacity. No large effusion or pneumothorax. Degenerative changes of the thoracic spine. Cortical compression plate and screw fixation of the right clavicle. Upper abdomen normal. IMPRESSION: 1. Right paramediastinal opacity may relate to overlapping vascular shadows, underlying fat pad or atelectasis. No other evidence to suggest acute cardiopulmonary disease. Electronically signed by: Mukul Benoit M.D. 02/08/2019 2:05 PM Dictated: 02/08/19 1403 Transcribed: 02/08/[address] head/brain wo con CLINICAL HISTORY: STROKE ALERT STROKE LIKE SYMPTOMS COMPARISON STUDY: No previous studies for comparison. TECHNIQUE: Axial CT of the brain is performed from the vertex to the skull base. IV contrast was not administered for this examination. A dose lowering technique was utilized adhering to the principles of ALARA. CT DOSE: 537.48 mGy.cm FINDINGS: No intra or extra-axial mass lesions are visualized. There is no CT evidence of acute cortical infarction. There is no evidence of midline shift. There is no acute hemorrhage. No calvarial fractures are visualized. There is minimal ventricular prominence, finding which is felt to be secondary t o volume loss. There is no evidence of pathologic ventricular dilatation. There is no evidence of acute sinusitis IMPRESSION: No acute intracranial findings Electronically signed by: Trae Guthrie M.D. 02/08/2019 1:07 PM Dictated: 02/08/19 1306 Transcribed: 02/08/19 1306 Hospital Course (1) Stroke-like symptoms: (2) Aphasia: Present on admission with aphasia associated with right arm tingling and weakness Possible related to TIA vs Hypertensive emergency Stroke alert called, but no TPA administered since BP was elevated and her symptoms improved CT head showed no acute intracranial abnormality MRI of the head showed no evidence for an acute ischemic process. Carotid doppler showed no hemodynamically significant stenosis seen within the carotid arteries. ECHO done showed no wall motion abnormality. No interatrial shunt with EF greater than 70% Received Aspirin in the ER Neuro on board Continue aspirin 81 mgg Waiting for neurology input about plavix due to remote history of stomach ulcer LDL 140, HDL 48 and Total cholesterol 218 Case discussed with neurology recommended to start on plavix over aspirin due to higher risk of GI bleeding with aspirin Will discharge on statin (Pt said that she was not able to tolerate the simvastatin in the past due to muscle cramp) Follow up with PCP for further management ZIO monitor as outpatient PT/OT completed - stable Clinically improves (3) Hypertensive emergency: BP on admission 245/125 Was starting on cardene drip that was d/c last night since BP was improved too rapidly BP has been fluctuated today Continue propranolol 80mg daily Starting on low dose amlodipine 2.5 mg Allow permissive HTN Will need follow up with PCP to monitor BP (4) Headache: Possible related to hypertensive urgency CT and MRI of the head negative for acute finding Resolved (5) HTN (hypertension): Will allow permissive HTN as above continue home inderal and amlodipine 2.5 mg added Monitor BP at home (6) CKD (chronic kidney disease), stage IV: H/O partial nephrectomy per pt, reports was mass that was benign. PCP records from 04/2018 with BUN:30, Cr: 2.02, GFR: 23 Creatinine today 1.8 Avoid nephrotoxic agents Stable (7) Hypothyroidism: H/O thyroidectomy secondary to benign nodule per pt TSH stable Continue levothyroxine DVT Prophylaxis Heparin SQ CODE STATUS FULL CODE Disposition Follows with PCP Dr Renard Jacobsen in [place], [place] Total Time Total Time Spent Total Time Spent (In Minutes): 35 minutes Total Time Includes: Examination of the Patient, Discharge Planning, Medication Reconciliation, Communication With Other Providers and Other Discharge Plan Discharge Items Patient Disposition: Home - Self-Care Reason For Visit: APHASIA Discharge Diagnosis: Stroke like Symptoms Hypertensive urgency Headache CKD stage 4 Discharge Goals: Decrease discomfort, Improve disease control, Increase independence and Improve nutritional status Activity: Resume your previous activity Activity Comment: As tolerated Non-emergency contact: Primary Care Provider Call non-emergency contact if: you have any medication questions Follow-up/Referrals: Renard Jacobsen MD [Primary Care Provider] - Diet: Heart Healthy Addtl Provider Instructions: Follow up with your primary care provider Dr Renard Jacobsen in [place], [place] Will need to arrange by your physician for a ZIO monitor for further management Starting on Plavix, please monitor for any abnormal bleeding such as blood in your stool and urine Notify your physician if you develop any abnormal bleeding Monitor your blood pressure Starting on atorvastatin for your cholesterol (if able to tolerate) Check LFT in 1 to 2 weeks after starting the cholesterol medication Fall precaution Prescriptions: New amlodipine [Norvasc] 5 mg Tablet 2.5 mg PO QAM Qty: 30 RF: 0 clopidogrel 75 mg tablet 75 mg PO DAILY Qty: 30 RF: 0 atorvastatin 40 mg tablet 40 mg PO DAILY Qty: 30 RF: 0 Continued gabapentin 300 mg Capsule 600 mg PO QAM RF: 0 gabapentin 300 mg Capsule 300 mg PO QPM RF: 0 levothyroxine [Synthroid] 112 mcg Tablet 112 mcg PO QAM RF: 0 calcium carbonate [Calcium 600] 600 mg calcium (1,500 mg) Tablet 1,200 mg PO DAILY RF: 0 magnesium 250 mg Tablet 250 mg PO DAILY RF: 0 propranolol 80 mg capsule,extended release 24 hr 80 mg PO DAILY RF: 0 Stand-Alone Forms: Medications to Prevent Stroke, [facility] Discharge Orders: Discharge Order (Routine); Ordered 02/09/19 Ordered By: Tristan Ruff Admission Data Admit Date/Time: 02/08/19 15:07 Attending Provider: Tristan Ruff Admit Provider: Betito Boswell Primary Care Provider: Renard Jacobsen Other Providers: Betito Boswell ; Manoj Irwin Service: Telemetry Other Interventions: Discharge Summary Assessment (RN) Last Done: 02/09/19 17:08 DC Date/Time DO NOT enter until pt leaves facility: 02/09/19 19:00
--- NOTE | 2019-02-13 13:20 | Pharmacy Report ---
Pharmacist Post D/C Phone Note - Phone Note: Date of phone call: February 13, 2019. Individual with whom pharmacist spoke to: ZOILA TOMAS The following questions were reviewed during the phone call with responses listed below each: Can you tell me the medications that you are currently taking as well as when and how you take each medication? -See Table Below When have you missed any doses of your medications? - NONE What side effects are you having from your medications, specifically, the new medications you were started on? - NONE What questions do you have about your medications? - NONE What problems are you having obtaining your medications? - NONE, all very cheap for medicare When is your next appointment with your primary care doctor? - today with Dr. Jacobsen Additional comments: - none As per the Pharmacist Discharge Counseling for Stroke Patients Protocol, this phone call has been completed within 72 hours of discharge. Thank you for allowing us to be involved in the care of this patient. Thank you for allowing us to be involved in the care of this patient. - Home Medications: Home Medications Medication Instructions Recorded Confirmed calcium carbonate [Calcium 600] 1,200 mg PO DAILY 02/08/19 02/08/19 gabapentin 300 mg PO QPM 02/08/19 02/08/19 gabapentin 600 mg PO QAM 02/08/19 02/08/19 levothyroxine [Synthroid] 112 mcg PO QAM 02/08/19 02/08/19 magnesium 250 mg PO DAILY 02/08/19 02/08/19 propranolol 80 mg PO DAILY 02/08/19 02/08/19 New Rx's Medication Instructions Recorded amlodipine [Norvasc] 2.5 mg PO QAM #30 tab 02/09/19 atorvastatin 40 mg PO DAILY #30 tab 02/09/19 clopidogrel 75 mg PO DAILY #30 tab 02/09/19
--- NOTE | 2019-03-01 09:03 | Coding Query ---
To promote full compliance with coding requirements relating to patient care, provider participation is requested in all cases of surgical coder uncertainty. Please assist us with the question(s) below: Coding Question: Possible TIA is listed in the progress notes but is not among the principal diagnosis list on the discharge summary or in the neurology consult. Please clarify if the patient was treated for TIA or if it was ruled- out. Thanks so much for your help! TIA ( ) Diagnosed and POA ( ) Diagnosed and not POA ( ) Ruled out ( x ) Other (please specify) Stroke like symptoms and aphasia possible TIA MTDD
== END 2019-02-09 19:00 | disposition home or self-care (01) | DRG 69 ==
LOC: EDBD → ED 12:59 → 2E 15:07